=== PATIENT | male | born 1995 | race Caucasian/White ===

== ENCOUNTER 2021-03-08 19:23 | Emergency (ER) | payer BC, SELFPAY ==
--- NOTE | ~2021-03-08 | XR_ITS ---
EXAMINATION: XR chest 1V portable EXAM DATE: 03/08/2021 20:04 INDICATION: dx COVID 03/04/21. SOB/cough worsening today . TECHNIQUE: Portable AP frontal chest x-ray was obtained. There is no prior study for comparison. FINDINGS: Small amount of Ill-defined bibasilar airspace disease probably pneumonia. Mid and upper juan m ng zones are clear. There is no pneumothorax suspected. There are no pleural effusions. Cardiomediast inal silhouette is normal. There are no osseous abnormalities identified. IMPRESSION: Small amount of ill-defined basilar pneumonia. Reviewed, dictated and finalized at location G. LAINT MANAGER
--- NOTE | ~2021-03-08 | CT_ITS ---
EXAMINATION: CTA chest PE protocol EXAM DATE: 03/08/2021 21:22 INDICATION: SOB elevated d dimer. COVID + SOB and Cough TECHNIQUE: Spiral CTA of the chest (pulmonary arteries) was performed with 100 cc Omnipaque 350 intr avenous contrast injection. Images were acquired during the pulmonary arterial phase. Coronal maxi mum intensity projection 3D-reconstructions were created by the technologist on dedicated workstation . Axial, coronal and sagittal reformatted images were reviewed. The dose-length product (DLP) for t his examination was 330.06 mGy-cm. The exposure was tailored according to patient size (auto mA exp osure control), and iterative reconstruction (ASIR) was used as additional dose reduction technique. Correlation is made to chest x-ray same date. FINDINGS: Pulmonary arteries are well opacified and without intraluminal filling defects. No thora cic aortic dissection. There is multi segmental right lower lobe, subsegmental right middle lobe, le ft lower lobe and lingular airspace disease which is nearly confluent. Appearance is consistent with acute infectious process, please clinically correlate. There are no pleural or pericardial effusions. Tracheobronchial tree is patent. There is no mediastinal, hilar or axillary lymphadenopathy. T here is no pneumothorax. Heart normal in size. No evidence of coronary arterial calcification. U pper abdomen is unremarkable. There are no osseous abnormalities identified. IMPRESSION: 1. Bibasilar pneumonia, multi segmental in the right lower lobe. Could be COVID pneumonia. Reviewed, dictated and finalized at location G. PMENT TECHNICIAN IMPRESSION: 1. Bibasilar pneumonia, multi segmental in the right lower lobe. Could be COVI D pneumonia.
--- NOTE | 2021-03-08 19:47 | ED.GENADULT ---
HPI - General Adult General Chief complaint: Nausea/Vomiting/Diarrhea Stated complaint: COVID +,nausea,dizzy,cough,fever Time Seen by Provider: 03/08/21 19:47 Source: patient Mode of arrival: ambulatory Limitations: no limitations History of Present Illness HPI narrative: 25-year-old male with no significant past medical history has been having -- fever - intermittently for the past 6 days -- nausea with multiple episodes of vomiting. Decreased p.o. intake. No abdominal pain. No diarrhea. -- Cough productive of mucoid sputum. No chest pain or shortness of breath. Onset (ago): day(s) ( Six days ago.) Relieving factors: none Associated symptoms: denies other symptoms Related Data Home Medications Medication Instructions Recorded Confirmed Wellbutrin 300 mg BYMOUTH DAILY 03/08/21 03/08/21 sertraline 25 mg BYMOUTH DAILY 03/08/21 03/08/21 Allergies Allergy/AdvReac Type Severity Reaction Status Date / Time No Known Allergies Allergy Verified 03/08/21 19:54 Review of Systems Review of Systems: All systems reviewed & are unremarkable except as noted in HPI and below Constitutional: Constitutional: Reports no additional constitutional complaints and Reports fever(s) Eyes: Eyes: Reports as per HPI and Reports no additional eye complaints ENT: Reports system reviewed and no additional complaints, except as documented Cardiovascular: Cardiovascular: Reports as per HPI and Reports no additional cardiovascular complaints Respiratory: Respiratory: Reports as per HPI and Reports no additional respiratory complaints Gastrointestinal: Gastrointestinal: Reports as per HPI, Reports no additional gastrointestinal complaints, Reports bloating, Reports nausea and Reports vomiting Genitourinary: Genitourinary: Reports no additional male genitourinary complaints Musculoskeletal: Musculoskeletal: Reports no additional musculoskeletal complaints Integumentary/Breasts: Skin/Breast: Reports system reviewed and no additional complaints, except as docu Neurologic: Reports system reviewed and no additional complaints, except as documented Psychiatric: Psychiatric: Reports no additional psychiatric complaints Endocrine: Endocrine: Reports no additional endocrine complaints Allergic/Immunologic: Allergic/Immunologic: Reports no additional allergic/immunologic complaints Exam Const: General: no acute distress Orientation/consciousness: patient oriented x3 HENMT: Head: normal to inspection Eyes: Conjunctivae: conjunctivae normal Pupils: Equal, round and reactive pupils present Neck: Neck: normal visual inspection Chest: Chest palpation & inspection: normal inspection of the chest Other: Chest is clear on auscultation. Resp: Effort & Inspection: normal respiratory effort Auscultation: clear to auscultation bilaterally Cardio: Rate: regular rate Rhythm: regular rhythm GI: GI Palp: Yes Soft to palpation and Yes Tenderness to palpation present (GI) ( No abdominal tenderness /rigidity / rebound.) : Testes: Testes normal Back/Spine/Pelvis: Back: no CVA tenderness Skin: General skin exam: normal color Neuro: General: patient oriented x3 and moves all extremities Extrem: General: normal to inspection Psych: Appearance: grossly normal Mental Status: mental status grossly normal Affect: normal affect Course Course Emergency Course: Chief patient had resolution of his nausea/vomiting with Compazine. Give 2 L of IV fluids in of his renal insufficiency. Patient was cultured and Given Rocephin and Zithromax. Vital Signs Vital signs: Vital Signs Temperature 38.3 C H 03/08/21 21:23 Pulse Rate 95 03/08/21 21:23 Respiratory Rate 20 03/08/21 21:23 Blood Pressure 117/73 03/08/21 21:23 Pulse Oximetry 95 03/08/21 21:23 Temperature 38.3 C H 03/08/21 21:23 Pulse Rate 95 03/08/21 21:23 Respiratory Rate 20 03/08/21 21:23 Blood Pressure 117/73 03/08/21 21:23 Pulse Oximetry 95
--- NOTE | 2021-03-08 19:51 | ECG_ITS ---
Measurements Intervals [place] Rate: 99 P: 54 NC: 128 QRS: 3 QRSD: 95 T: 29 QT: 336 QTc: 432 Interpretive Statements SINUS RHYTHM NONSPECIFIC ST ELEVATION IN DIFFUSE LEADS BASELINE ARTIFACT- I, II, III, AVR, AVL, AVF, V1-V3 BORDERLINE ECG Electronically Signed On 03-09-2021 7:59:15 [employer] ASSISTANT by Vinayak Wang D.O.
[2021-03-08 20:11] LABS: Hematocrit 38.2 % (40.0-54.0); Hemoglobin 11.9 g/dL (14.0-18.0); Immature Granulocyte Absolute 0.02 K/mm3 (0.00-0.00); Immature Granulocyte Percent A 0.5 % (0.0-0.0); Lymphocytes Absolute Auto 1.13 K/mm3 (1.10-4.50); Lymphocytes Percent Auto 27.8 % (18.0-42.0); Mean Corpuscular HGB Conc 31.2 g/dL (32.0-36.0); Mean Corpuscular Hemoglobin 20.1 pg (27.0-31.0); Mean Corpuscular Volume 64.5 fL (78.0-102.0); Mean Platelet Volume 10.5 fl (8.7-11.0); Monocytes Absolute Auto 0.35 K/mm3 (0.10-0.90); Monocytes Percent Auto 8.6 % (2.0-11.0); Neutrophils Absolute Auto 2.6 K/mm3 (1.7-7.2); Neutrophils Percent Auto 63.1 % (50.0-70.0); Platelet Count Result 227 K/mm3 (150-420); Red Blood Count 5.92 M/mm3 (4.70-6.10); Red Cell Distribution Width 14.8 % (11.6-14.4); White Blood Count 4.1 K/mm3 (4.8-10.8)
[2021-03-08] MEDS: LACTATED RINGERS 1,000 ML 999 ML IV CONT (20:16)
[2021-03-08 20:33] LABS: Alanine Aminotransferase 25 U/L (16-63); Albumin Level 3.4 g/dL (3.4-5.0); Alkaline Phosphatase 59 U/L (46-116); Anion Gap 10 mmol/L (8-16); Aspartate Amino Transferase 15 U/L (15-37); Bilirubin,Total 0.3 mg/dL (0.00-1.00); Blood Urea Nitrogen 16 mg/dL (7-18); Calcium 8.3 mg/dL (8.5-10.1); Carbon Dioxide 27 mmol/L (21-32); Chloride 104 mmol/L (98-108); Estimated Glomerular Filt Rate 54; Glucose 98 mg/dL (70-99); Lipase 174 U/L (73-393); NT Pro B Type Natriuretic Pept 143 pg/mL (0-125); Osmolality Calculated 293 mOsm/kg (285-295); Sodium 141 mmol/L (136-145); Total Protein 7.5 g/dL (6.4-8.2)
[2021-03-08 20:34] LABS: Troponin I 5.7 ng/L (0.00-60.4)
[2021-03-08] MEDS: PROCHLORPERAZINE EDISYLATE 10 MG/2 ML VIAL IM (20:49)
--- NOTE | 2021-03-08 21:21 | PC.NURSE ---
lab called elevated BNP on Pt. 1.6 Pt toCT for cta and returned via w/c at this time. Mask in hallway no change in condition awaiting results. 0 Further episodes [id number].
[2021-03-08 21:23] VITALS: BP 117/73; PULSE 95; RESP 20; TEMP 38.3; O2SAT 95
[2021-03-08] MEDS: AZITHROMYCIN 250 MG TABLET 500 MG PO (22:26)
[2021-03-08] MEDS: cefTRIAXone 1 GM in DEXTROSE 5% IN WATER 50 ML IVPB (22:45)
[2021-03-08] MEDS: SODIUM CHLORIDE 0.9% IV 500 ML 999 ML IV CONT (22:58)
[2021-03-08 23:16] VITALS: BP 128/77; PULSE 91; RESP 20; TEMP 37.3; O2SAT 100
--- NOTE | 2021-03-31 07:13 | PC.NURSE ---
LE: 03/08/2021 at 20:10 started LR 1000ml/ stopped at 21:10. 22:15 started NS .9% 100ml/ stopped at 23:15 22:15 Started Rocephin 50ml stopped at 23:15
== END 2021-03-08 23:29 | disposition home or self-care (01) ==
PROVIDERS: Emergency Provider Internal Medicine Critical Care Medicine
DX: U07.1 COVID-19 (principal); J18.9 Pneumonia, unspecified organism; R11.2 Nausea with vomiting, unspecified; N17.9 Acute kidney failure, unspecified
CPT/HCPCS: 36415; 71045; 71275; 80053; 83690; 83880; 84484; 85025; 85380; 87040; 93005; 96361; 96365; 96372; 99283; 99284; A9270; J0696; J0780; J7040; J7120; Q9967